=== PATIENT | female | born 1990 | race Caucasian/White ===

== ENCOUNTER → 2017-12-24 | Outpatient (CLI) | payer BC ==
[~2017-12-24] MED LIST: PRENTAB26 PO
[2017-12-24 12:12] LABS: BASO % 0.4 %; BASO ABS # 0.02 K/uL (0-0.2); EOS ABS # 0.05 K/uL (0-0.5); HEMATOCRIT 39.3 % (37-47); HEMOGLOBIN 13.1 g/dL (12.0-16.0); IG# 0.01 K/uL (0.00-0.02); LYMPH ABS # 1.36 K/uL (1.2-3.4); MEAN CELL VOLUME 86.2 fL (80-100); MEAN CORPUSCULAR HEMOGLOBIN 28.7 pg (25-34); MEAN CORPUSCULAR HGB CONC 33.3 g/dl (32-36); MEAN PLATELET VOLUME 10.6 fL (7.4-10.4); MONO % 5.6 %; MONO ABS # 0.27 K/uL (0.11-0.59); NEUT % 64.8 %; NEUT ABS # 3.15 K/uL (1.4-6.5); PLATELET COUNT 228 K/uL (130-400); RED CELL DISTRIBUTION WIDTH CV 13.3 % (11.5-14.5); RED CELL DISTRIBUTION WIDTH SD 41.9 fL (36.4-46.3); WHITE BLOOD COUNT 4.86 K/uL (4.8-10.8)
[2017-12-24 16:46] LABS: ALBUMIN 4.3 gm/dl (3.4-5.0); ALT/SGPT 20 U/L (12-78); AST/SGOT 13 U/L (15-37); BLOOD UREA NITROGEN 9 mg/dl (7-18); CALCIUM 8.8 mg/dl (8.5-10.1); CARBON DIOXIDE 26 mmol/L (21-32); CHOLESTEROL 172 mg/dl (0-200); CREATININE 0.78 mg/dl (0.60-1.20); GLUCOSE 80 mg/dl (70-99); POTASSIUM 3.8 mmol/L (3.5-5.1); SODIUM 139 mmol/L (136-145)
[2017-12-24 16:57] LABS: ALKALINE PHOSPHATASE 58 U/L (45-117); LDL CHOLESTEROL CALCULATED 91 mg/dl
== END | disposition home or self-care (01) ==
LOC: C.LABBFT 11:14
PROVIDERS: ATTEND Internal Medicine
DX: Z13.6 Encounter for screening for cardiovascular disorders (principal); R10.9 Unspecified abdominal pain

== ENCOUNTER → 2018-01-01 | Outpatient (CLI) | payer BC ==
--- NOTE | 2018-01-01 12:16 | DIAGNOSTIC IMAGING REPORT ---
ABDOMEN COMPLETE (US) HISTORY: Pain ABDOMINAL PAIN OF MULTIPL SITES. COMPARISON: None. FINDINGS: Pancreas: The pancreas demonstrates a normal echotexture. Liver: Unremarkable. Gallbladder: No gallbladder wall thickening. No gallstones. CBD: 2 mm Kidneys: No hydronephrosis. Spleen: Normal in size. Aorta: Normal in caliber. IVC: Patent. IMPRESSION: No significant abnormality identified within the within the abdomen. The above report was generated using voice recognition software. It may contain grammatical, syntax or spelling errors. Electronically signed by: Hector Tejeda M.D. 01/01/2018 12:14 PM Dictated Date/Time: 01/01/2018 12:12 PM
--- NOTE | 2018-01-01 12:16 | DIAGNOSTIC IMAGING REPORT ---
EXAMINATION: PELVIC ULTRASOUND (transabdominal and endovaginal scanning) CLINICAL HISTORY: Pelvic pain COMPARISON STUDY: FINDINGS: The uterus measured 9.6 x 4.3 x 6.0 cm. The endometrial stripe measured 5 mm. The right ovary measured 27 x 29 x 28 mm. There is an 18 mm right ovarian follicle. The left ovary measured 16 x 17 x 32 mm. There is no ultrasonographic evidence of ovarian torsion. It should be noted that ovarian torsion can be present with normal Doppler ultrasonographic findings. There is trace free fluid likely physiologic. IMPRESSION: Normal pelvic ultrasound. Electronically signed by: David Mcdowell M.D. 01/01/2018 12:15 PM Dictated Date/Time: 01/01/2018 12:14 PM
== END | disposition home or self-care (01) ==
LOC: C.ULTR 10:09
PROVIDERS: ATTEND Internal Medicine
DX: R10.9 Unspecified abdominal pain (principal)

== ENCOUNTER → 2018-03-25 | Day surgery (SDC) | payer BC ==
[2018-03-23 14:00] VITALS: Ht 165.1 cm; Wt 63.6 kg
[~2018-03-25] VITALS: Ht 165.1 cm; Wt 63.6 kg
[~2018-03-25] MED LIST changes: +DICY10CA12 PO; +LIDOCAINE HCL 2% 2 ML VIAL (20MG/ML) ONE; -PRENTAB26 PO; +PROPOFOL IV EMULSION 10 MG/ML 20 ML VIAL ONE; +SODIUM CHLORIDE 0.9% 500ML 500 ML IV ONE
--- NOTE | 2018-03-25 15:22 | Endo History and Physical ---
History & Physical Date of Service: Mar 25, 2018. Chief Complaint: Abdominal Pain Referring Physician: Dr. Nichols History of Present Illness 27 yo CF who presents for colonoscopy secondary to abdominal pain. Past Surgical History Hx Cardiac Surgery: No Hx Internal Defibrillator: No Hx Pacemaker: No Hx Abdominal Surgery: No Hx of Implantable Prosthesis: No Hx Post-Op Nausea and Vomiting: No Hx Cancer Surgery: No Hx Thoracic Surgery: No Hx Orthopedic: No Hx Urinary Tract Surgery: No Social History Smoking Status: Never Smoker Hx Substance Use: No Hx Alcohol Use: Yes (RARELY) Allergies Coded Allergies: No Known Allergies (Unverified , 03/25/18) Current Medications Reported Home Medications Medications Dose Route/Sig Max Daily Dose Days Date Category Dicyclomine Hcl 10 Mg Cap 1 Cap PO Q6H PRN 25 03/23/18 Reported Vital Signs Weight (Kilograms): 63.64 Height (Feet): 5 Height (Inches): 5 Date Time Temp Pulse Resp B/P (MAP) Pulse Ox O2 Delivery O2 Flow Rate FiO2 03/25/18 15:16 37.2 75 18 122/74 (90) 97 Room Air Physical Exam General Appearance: WD/WN, no apparent distress Respiratory/Chest: Auscultation: breath sounds normal Cardiovascular: Heart Auscultation: RRR Abdomen: Bowel Sounds: normal Inspection & Palpation: soft, non-distended, no tenderness, guarding & rebound Assessment and Plan Assessment: 27 yo CF who presents for colonoscopy secondary to abdominal pain. Plan: Proceed with colonoscopy.
--- NOTE | 2018-03-25 16:14 | Discharge Instructions ---
Endoscopy Patient Instructions Date / Procedure(s) Performed Mar 25, 2018. Colonoscopy Allergy Information Coded Allergies: No Known Allergies (Unverified , 03/25/18) Discharge Date / Findings Mar 25, 2018. Internal hemorrhoids Medication Instructions OK to resume all medications today as prescribed Reported Home Medications Medications Dose Route/Sig Max Daily Dose Days Date Category Dicyclomine Hcl 10 Mg Cap 1 Cap PO Q6H PRN 25 03/23/18 Reported Provider Instructions Activity Restrictions - No exercising or heavy lifting for 24 hours. - Do not drink alcohol the day of the procedure. - Do not drive a car or operate machinery until the day after the procedure. - Do not make any important decisions or sign important papers in 24 hours after the procedure. Following Day: - Return to full activity which may include returning to work/school. Diet Start your diet with liquids and light foods (jello, soup, juice, toast). Then eat your usual diet if not nauseated. Treatment For Common After Affects For mild abdominal pain, bloating, or excessive gas: - Rest - Eat lightly - Lie on right side Follow-Up Information Follow-up with Dr. Nichols as scheduled Anesthesia Information What You Should Know You have had a procedure that required some medicine to reduce anxiety and discomfort. This treatment is called moderate sedation. After receiving the treatment, you may be sleepy, but you will be able to breathe on your own. The effects of the treatment may last for several hours. Follow these instructions along with Activity/Diet recommendations noted above: * Do NOT do anything where dizziness or clumsiness would be dangerous. * Rest quietly at home today, then you can be up and about tomorrow. * Have a responsible person stay with you the rest of today. * You may have had an I.V. today. If so, you may take the dressing off later today. Recommendations Call your doctor if: * Trouble breathing * Continuous vomiting for more than 24 hours * Temperature above 101 degrees * Severe abdominal pain or bloating * Pain not relieved by pain medicine ordered * There is increased drainage or redness from any incision * A large amount of rectal bleeding greater than 2-3 tablespoons. (If you had a polyp/s removed or have hemorrhoids, a small amount of blood - from the rectum is to be expected.) * You have any unanswered questions or concerns. IN THE EVENT OF A SERIOUS EMERGENCY, GO TO THE NEAREST EMERGENCY ROOM Your discharge instructions were prepared by provider Branden Peters. Patient Instructions Signature Page Radha Nunez Patient (or Guardian) Signature/Date: I have read and understand the instructions given to me by my caregivers. Caregiver/RN/Doctor Signature/Date: The above-named patient and/or guardian has received patient instructions on this date. + Original Patient Signature Page (only) stays with chart. Please make copy for patient.
--- NOTE | 2018-03-25 16:28 | GI REPORT ---
Patient Name: Radha Nunez Procedure Date: 03/25/2018 3:51 PM Date of : 1990 Admit Type: Outpatient Age: 27 Gender: Female Attending MD: Branden Peters DO Procedure: Colonoscopy Providers: Branden Peters DO Referring MD: Jesi Duran Indications: Generalized abdominal pain Medicines: Monitored Anesthesia Care Complications: No immediate complications. Estimated Blood Loss: Estimated blood loss: none. Procedure: Pre-Anesthesia Assessment: - Prior to the procedure, a History and Physical was performed, and patient medications and allergies were reviewed. The patient's tolerance of previous anesthesia was also reviewed. The risks and benefits of the procedure and the sedation options and risks were discussed with the patient. All questions were answered, and informed consent was obtained. Prior Anticoagulants: The patient has taken no previous anticoagulant or antiplatelet agents. ASA Grade Assessment: I - A normal, healthy patient. After reviewing the risks and benefits, the patient was deemed in satisfactory condition to undergo the procedure. After I obtained informed consent, the scope was passed under direct vision. Throughout the procedure, the patient's blood pressure, pulse, and oxygen saturations were monitored continuously. The Scope was introduced through the anus and advanced to the terminal ileum. The colonoscopy was performed without difficulty. The patient tolerated the procedure well. The quality of the bowel preparation was good. The terminal ileum, ileocecal valve, appendiceal orifice, and rectum were photographed. Findings: The perianal and digital rectal examinations were normal. Non-bleeding internal hemorrhoids were found during retroflexion. The hemorrhoids were small. Impression: - Non-bleeding internal hemorrhoids. - No specimens collected. Recommendation: - Resume previous diet. - Continue present medications. - Repeat colonoscopy at age 49 for surveillance. - Return to primary care physician as previously scheduled. Branden Peters DO 03/25/2018 4:28:13 PM This report has been signed electronically. Note Initiated On: 03/25/2018 3:51 PM Number of Addenda: 0 I attest to the content of the Intraoperative Record and orders documented therein, exceptions below {[id number]}
[2018-03-25 16:49] VITALS: BP 108/76; PULSE 64; O2SAT 100
--- NOTE | 2018-03-25 16:49 | Anesthesiology Progress Note ---
Anesthesia Post Op Note Date & Time Mar 25, 2018 at 16:49 Vital Signs Pain Intensity: 0 Vital Signs Past 12 Hours Date Time Temp Pulse Resp B/P (MAP) Pulse Ox O2 Delivery O2 Flow Rate FiO2 03/25/18 16:34 82 16 106/77 (87) 100 Room Air 03/25/18 16:19 36.7 100 16 101/78 (86) 97 Room Air 03/25/18 15:16 37.2 75 18 122/74 (90) 97 Room Air Notes Mental Status: alert / awake / arousable, participated in evaluation Pt Amnestic to Procedure: Yes Nausea / Vomiting: adequately controlled Pain: adequately controlled Airway Patency, RR, SpO2: stable & adequate BP & HR: stable & adequate Hydration State: stable & adequate Anesthetic Complications: no major complications apparent
== END | disposition home or self-care (01) ==
LOC: C.GI 14:34
PROVIDERS: ATTEND Internal Medicine
DX: R10.84 Generalized abdominal pain (principal); K64.8 Other hemorrhoids

== ENCOUNTER 2018-12-06 07:48 | Inpatient (IN) ==
[2018-12-06] MEDS ORDERED: OXYTOCIN 30 UNITS/500 ML BAG IV PRN ×2 (08:07→12:45)
[2018-12-06] MEDS ORDERED: LACTATED RINGER'S 1,000 ML IV PRN ×2 (08:07→09:46)
[2018-12-06] MEDS ORDERED: LACTATED RINGER'S 1,000 ML IV SCH (08:15)
[2018-12-06 08:28] LABS: Hematocrit (blood only) 30.5 % (37-47); Hemoglobin 9.6 g/dL (12.0-16.0); Mean Corpuscular Volume 85.4 fL (80-100); Mean Platelet Volume 10.6 fL (7.4-10.4); Platelet Count 209 K/uL (130-400); RDW Coefficient of Variation 15.2 % (11.5-14.5); Red Blood Count 3.57 M/uL (4.2-5.4); White Blood Count 9.98 K/uL (4.8-10.8)
[2018-12-06 08:35] LABS: Mean Corpuscular Hgb Conc 31.5 g/dL (32-36)
[2018-12-06] MEDS ORDERED: BUPIVACAINE 0.25% 30 ML VIAL ONE (08:55)
[2018-12-06] MEDS ORDERED: ePHEDrine sulfate 50 MG/ML AMP ONE (08:56)
[2018-12-06] MEDS ORDERED: fentaNYL 2MCG/ML ROPIV 1.25MG/ML 100 ML BAG EPI ONE (08:57)
[2018-12-06] MEDS ORDERED: fentaNYL citrate 100 MCG/2 ML VIAL ONE (08:57)
--- NOTE | 2018-12-06 09:30 | Anesthesiology Consultation ---
Date of Service December 06, 2018 Assessment & Plan Chart Review Chart Review: Patient NOT seen in Pre Admission Testing and Acceptable Risk for Labor Epidural Consults Requested none ASA ASA2 Proposed Anesthesia Anesthesia Type: Labor Epidural and CSE Risk / Benefits Reviewed With: PT / POA / Parent / Guardian, Accepts Plan and Informed Consent Obtained NPO Date Last Intake of Fluids: 12/06/18 Time Last Intake of Fluids: 09:00 Date Last Intake of Solids: 12/05/18 Time Last Intake of Solids: 17:00 History Height/Weight Height: 5 ft 5 in Weight: 74.843 kg Allergies Allergy/AdvReac Type Severity Reaction Status Date / Time No Known Allergies Allergy Verified 12/06/18 08:04 Medications Home Medications Medication Instructions Recorded Confirmed Last Taken PNV cmb#95-ferrous fumarate-FA 1 tab PO DAILY 12/06/18 12/06/18 12/06/18 06:00 [] Active Medications Generic Name Dose Route Start Last Admin Trade Name Freq PRN Reason Stop Dose Admin Lactated Ringer's 1,000 mls @ 125 mls/hr 12/06/18 08:15 12/06/18 09:05 Lr IV 12/08/18 08:14 125 mls/hr .Q8H WILLIAM Administration Lactated Ringer's 1,000 mls @ 999 mls/hr 12/06/18 08:07 12/06/18 09:06 Lr IV 01/05/19 08:06 Infused .Q1H1M PRN Infusion (Pre-Anesthesia) Past Family History Family History Other Diabetes mellitus, type 2 Past Surgical History Surgical History History of colonoscopy Past Anesthesia History No Hx of Anesthesia Complications and No Family Hx of Anesthesia Complications History of PONV No Motion Sickness Screening History of Motion Sickness: No Social History Smoking Status: Never smoker Do You Dip or Chew Tobacco: No Hx Alcohol Use: No Hx Substance Use: No Exercise / Class Metabolic Activity II 4-5 Yardwork/Stairs/Walk up hill Review of Systems no chest pain or sob Physical Exam Vital Signs Last Vital Signs Temp 36.7 C 12/06/18 08:17 Pulse 85 12/06/18 08:21 Resp 18 12/06/18 08:17 BP 118/66 12/06/18 08:21 SpO2 100 ENMT Mouth: no TMJ abnormality Thyromental Distance: > or= 3.5 Finger Breadths Mallampati Class: II Neck normal visual inspection Respiratory normal respiratory effort Auscultation: lungs clear to auscultation bilaterally Cardiovascular Rate/Rhythm: regular rate and regular rhythm Musculoskeletal Spine: normal cervical ROM Neurologic moves all extremities Psychiatric Orientation: alert and oriented x 3 Testing Laboratory Results 12/06/18 08:16
[2018-12-06] MEDS ORDERED: ONDANSETRON INJ 2 MG/ML 2 ML VIAL IV PRN (09:46)
[2018-12-06] MEDS ORDERED: ePHEDrine sulfate 50 MG/ML AMP IV PRN (09:46)
[2018-12-06] MEDS ORDERED: NALBUPHINE HCL INJ 10 MG/ML AMP IV PRN (09:46)
[2018-12-06] MEDS ORDERED: NALOXONE HCL 1 MG in SODIUM CHLORIDE 0.9% 1000ML 1,000 ML IV PRN (09:46)
[2018-12-06] MEDS ORDERED: DiphenhydrAMINE HCL 50 MG/ML VIAL IV PRN (09:46)
[2018-12-06] MEDS ORDERED: NALOXONE HCL 0.4 MG/1 ML VIAL/CARP IV PRN (09:46)
[2018-12-06] MEDS ORDERED: fentaNYL 2MCG/ML ROPIV 1.25MG/ML 100 ML BAG EPI PRN (09:46)
--- NOTE | 2018-12-06 10:32 | History & Physical Report ---
Date of Service December 06, 2018 Assessment & Plan (1) 39 weeks gestation of : 28yo @ 39 6/7 in spontaneous labor Admit to L&D, EFM/toco, IVF/labs. OK for epidural when she desires. Anticipate . History of Present Illness Chief Complaint: contractions Primary Care Provider: Compa Nichols MD 28yo @ 39 6/7 presents with regular ctx. No leaking of fluid, no vaginal bleeding. + movement. complicated by Hepatitis C, had followup labs that were negative - Infectious Disease in [place] stated that she required no further workup. Patient's brother had h/o VSD, but echo was normal. 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
--- NOTE | 2018-12-06 12:30 | Procedure Note ---
Vaginal Delivery Summary Date of Service December 06, 2018 Vaginal Delivery Summary Predelivery diagnoses: 28yo @ 39 6/7, Hepatitis C (with negative labs) Postdelivery diagnoses: same, 1st degree perineal laceration Procedure: spontaneous vaginal delivery, repair of 1st degree laceration Surgeon: Dr Morin EBL: 300ml Complications: none Findings: Viable male , APGARS 8/8, Weight pending please see nursery records. Description of delivery: The patient had presented in labor, received epidural,she progressed to 9 cm, at this time artificial rupture membranes was performed for large amount of clear fluid. She then quickly present progressed to complete dilation. She began to push. She spontaneously vaginally delivered a viable male from the cephalic presentation. The head delivered in the right occiput anterior position, followed by the anterior and the posterior shoulder, followed by the body. The baby was placed on mother's abdomen, spontaneous cry was heard. Delayed cord clamping was employed, after 1 minute the cord was doubly clamped and cut. Cord blood was obtained. The placenta delivered spontaneously intact with a three-vessel cord. The uterus and vagina were swabbed of all clot and debris. The Pitocin was given, the uterus became firm. The cervix, vagina, perineum were inspected and a superficial first-degree perineal laceration was noted, patient requested repair. This was repaired in standard fashion with 3-0 Vicryl in a running stitch. Excellent hemostasis was observed. Mother and baby tolerated the delivery well, and are recovering in the room in stable and good condition. At the conclusion of the delivery, s ponge, instrument, needle counts were correct x2.
[2018-12-06] MEDS ORDERED: ACETAMINOPHEN 325 MG TAB PO PRN (12:45)
[2018-12-06] MEDS ORDERED: BISACODYL 10 MG SUPP PR PRN (12:45)
[2018-12-06] MEDS ORDERED: HYDROCORTISONE ACETATE 25 MG SUPP PR PRN (12:45)
[2018-12-06] MEDS ORDERED: SUPERCREAM 0.870% 15 GM JAR EXT PRN (12:45)
[2018-12-06] MEDS ORDERED: BENZOCAINE 20% AER SPR 82.5 GM CAN EXT PRN (12:45)
[2018-12-06] MEDS ORDERED: OXYCODONE/ACETAMINOPHEN 5mg/325mg TAB PO PRN (12:45)
[2018-12-06] MEDS ORDERED: DIPHTHERIA/TETANUS/PERTUSSIS 0.5 ML SYR/VIAL IM ONE (12:45)
[2018-12-06] MEDS: IBUPROFEN 600 MG TAB PO PRN ×2 (14:24→23:11)
--- NOTE | 2018-12-06 15:24 | Anesthesia Procedure Note ---
Date of Service December 06, 2018 Anesthesia Post Epidural Note Vital Signs Vital Signs: Temp Pulse Resp BP Pulse Ox 36.7 C 112 H 18 144/70 H 96 12/06/18 08:17 12/06/18 15:18 12/06/18 10:30 12/06/18 15:18 12/06/18 12:23 Pain Intensity Lower Abdomen: Pain Intensity: 0 Notes Mental Status: alert / awake / arousable and participated in evaluation Nausea / Vomiting: adequately controlled Pain: adequately controlled Airway Patency, RR, SpO2: stable & adequate BP & HR: stable & adequate Hydration State: stable & adequate Neuraxial Anesthesia: was administered and sensory block is resolving Anesthetic Complications: no major complications apparent and Pt Satisfied with anesthetic care Epidural: Removed without complications and With tip intact
[2018-12-06] MEDS: DOCUSATE SODIUM 100 MG CAP PO SCH (20:33)
[2018-12-07 06:42] LABS: Hemoglobin 8.8 g/dL (12.0-16.0)
--- NOTE | 2018-12-07 08:53 | Obstetrical Progress Note ---
Date of Service December 07, 2018 Assessment & Plan (1) 39 weeks gestation of : PPD#1 doing well. Would like discharge. Instructions reviewed. Subjective Ambulation: ambulating normally Passing Gas:: Yes Diet Tolerance:: regular diet Lochia:: Moderate Feeding Type:: breast feeding Physical Exam Vital Signs (Past 24 Hours) Last Vital Signs Temp 36.7 C 12/07/18 03:30 Pulse 79 12/07/18 03:30 Resp 18 12/07/18 03:30 BP 110/54 L 12/07/18 03:30 Pulse Ox 97 12/07/18 03:30 Gen AAO x3 NAD CV [id number] L CTAB Abd soft NTTP fundus firm Ext no edema
[2018-12-07] MEDS ORDERED: PRENATAL VITAMIN 1 TAB PO SCH (09:00)
[2018-12-07] MEDS: DOCUSATE SODIUM 100 MG CAP PO SCH (09:14)
[2018-12-07] MEDS ORDERED: BISACODYL 5 MG TABEC PO SCH (20:00)
== END 2018-12-07 14:30 | disposition home or self-care (01) | DRG 807 ==
LOC: OPB 07:48 → 4S1 07:53 → 4S2 17:08

== ENCOUNTER 2020-04-07 23:16 | Inpatient (IN) ==
[2020-04-07] MEDS ORDERED: ePHEDrine sulfate 50 MG/ML AMP ONE (23:57)
[2020-04-07] MEDS ORDERED: BUPIVACAINE 0.25% 30 ML VIAL ONE (23:57)
[2020-04-07] MEDS: LACTATED RINGER'S 1,000 ML IV PRN (23:57)
[2020-04-07] MEDS ORDERED: fentaNYL 2MCG/ML ROPIV 1.25MG/ML 100 ML BAG EPI ONE (23:58)
[2020-04-07] MEDS ORDERED: fentaNYL citrate 100 MCG/2 ML VIAL ONE (23:58)
[2020-04-08 00:04] LABS: Hematocrit (blood only) 31.6 % (37-47); Mean Corpuscular Hemoglobin 26.1 pg (25-34); Mean Corpuscular Volume 82.5 fL (80-100); Mean Platelet Volume 10.1 fL (7.4-10.4); Platelet Count 202 K/uL (130-400); RDW Coefficient of Variation 16.7 % (11.5-14.5); RDW Standard Deviation 50.8 fL (36.4-46.3); Red Blood Count 3.83 M/uL (4.2-5.4); White Blood Count 10.27 K/uL (4.8-10.8)
[2020-04-08 00:06] LABS: Mean Corpuscular Hgb Conc 31.6 g/dL (32-36)
[2020-04-08] MEDS ORDERED: ONDANSETRON INJ 2 MG/ML 2 ML VIAL IV PRN (00:09)
[2020-04-08] MEDS ORDERED: DiphenhydrAMINE HCL 50 MG/ML VIAL IV PRN (00:09)
[2020-04-08] MEDS ORDERED: fentaNYL 2MCG/ML ROPIV 1.25MG/ML 100 ML BAG EPI PRN (00:09)
[2020-04-08] MEDS ORDERED: ePHEDrine sulfate 50 MG/ML AMP IV PRN (00:09)
[2020-04-08] MEDS ORDERED: NALOXONE HCL 0.4 MG/1 ML VIAL/CARP IV PRN (00:09)
[2020-04-08] MEDS ORDERED: NALOXONE HCL 1 MG in SODIUM CHLORIDE 0.9% 1000ML 1,000 ML IV PRN (00:09)
--- NOTE | 2020-04-08 00:12 | Anesthesiology Consultation ---
Date of Service April 08, 2020 Covid 19 negative on 04/04/20. Assessment & Plan Chart Review Chart Review: Patient NOT seen in Pre Admission Testing and Acceptable Risk for Labor Epidural Consults Requested none ASA ASA2 Proposed Anesthesia Anesthesia Type: Labor Epidural and CSE Risk / Benefits Reviewed With: PT / POA / Parent / Guardian, Accepts Plan and Informed Consent Obtained History Height/Weight Height: 5 ft 5 in Weight: 75.296 kg Allergies Allergy/AdvReac Type Severity Reaction Status Date / Time No Known Allergies Allergy Verified 04/07/20 23:31 Medications Home Medications Medication Instructions Recorded Confirmed Last Taken prenat.vits,werner,jlx-vhia-qulfs 1 tab PO DAILY 09/02/19 04/04/20 Unknown ferrous sulfate 325 tab PO DAILY 03/28/20 04/04/20 Unknown Active Medications Generic Name Dose Route Start Last Admin Trade Name Freq PRN Reason Stop Dose Admin Lactated Ringer's 1,000 mls @ 125 mls/hr 04/07/20 23:36 04/07/20 23:57 Lr IV 04/09/20 23:35 999 mls/hr .Q8H PRN Administration L&D Protocol Protocol NPO Date Last Intake of Fluids: 04/07/20 Time Last Intake of Fluids: 19:00 Date Last Intake of Solids: 04/07/20 Time Last Intake of Solids: 23:00 Past Medical History Medical History 39 weeks gestation of Heart murmur Varicella vaccination Exercise / Class Metabolic Activity II 4-5 Yardwork/Stairs/Walk up hill Past Family History Family History Brother VSD (ventricular septal defect) Mother Cervical cancer Other Diabetes mellitus, type 2 Past Surgical History Surgical History History of colonoscopy S/P eye surgery Past Anesthesia History No Hx of Anesthesia Complications and No Family Hx of Anesthesia Complications History of PONV No Hx of PONV and No Hx of Motion Sickness Social History Smoking Status: Never smoker Hx Alcohol Use: No Hx Substance Use: No Review of Systems no chest pain or sob Physical Exam Vital Signs Last Vital Signs Temp 36.7 C 04/07/20 23:39 Pulse 84 04/08/20 00:08 Resp 20 08/15/20 23:39 BP 117/69 04/07/20 23:30 Pulse Ox 99 04/08/20 00:08 ENMT Mouth: no TMJ abnormality Thyromental Distance: > or= 3.5 Finger Breadths Mallampati Class: II Neck normal visual inspection Respiratory normal respiratory effort Auscultation: lungs clear to auscultation bilaterally Cardiovascular Rate/Rhythm: regular rate and regular rhythm Musculoskeletal Spine: normal cervical ROM Neurologic moves all extremities Psychiatric Orientation: alert and oriented x 3 Testing Laboratory Results 04/07/20 23:55
--- NOTE | 2020-04-08 00:56 | Labor Progress Brief Note ---
Date of Service April 08, 2020 Subjective at 40w1d arrived from home with contractions becoming more frequent and painful. No LOF, no VB, Good FM. Assessment & Plan (1) Normal labor and delivery: Patient arrived in active labor, has a history of rapid labors and is a multip. Allow rest at this time for epidural to take effect. Can re-assess once comfortable, and anticipate . Admission and Anticipated Discharge Date Admission Date: April 07, 2020 Physical Exam Physical Exam: Per RN Schroeder cervix 7cm / bulging membranes. FHT Cat 1 Patient was admitted on the nurse's exam as I was delivering another patient at this time. IV placed. Epidural requested. When I arrived in this patient's room she was mid-epidural procedure. I supported her during the epidural so NOLBERTO Sanches could complete her other admission tasks. The patient tolerated her epidural procedure well but needed more time to become comfortable so her cervix was not immediately rechecked. Results & Data ([facility]) Vital Signs (Past 12 Hours) Vital Signs Temp Pulse Resp BP Pulse Ox 04/08/20 00:51 73 103/55 L 04/08/20 00:48 76 99 04/08/20 00:43 68 99 04/08/20 00:38 82 99 04/08/20 00:36 75 109/56 L 04/08/20 00:34 84 110/60 04/08/20 00:33 76 98 04/08/20 00:32 78 107/56 L 04/08/20 00:30 84 110/61 04/08/20 00:28 80 106/59 L 98 04/08/20 00:26 81 105/57 L 04/08/20 00:24 90 133/73 04/08/20 00:23 88 100 04/08/20 00:18 87 99 04/08/20 00:14 85 89 L 04/08/20 00:13 86 94 04/08/20 00:08 84 99 04/08/20 00:04 89 87 L 04/08/20 00:03 101 H 96 04/07/20 23:39 98.1 F 20 04/07/20 23:30 98.1 F 83 20 117/69 Coding Level of Care Code None Diagnoses Normal labor and delivery O80
[2020-04-08] MEDS: LACTATED RINGER'S 1,000 ML IV PRN (01:03)
[2020-04-08] MEDS: OXYTOCIN 30 UNITS/500 ML BAG IV PRN ×2 (01:55→02:27)
--- NOTE | 2020-04-08 02:04 | Delivery Summary ---
Vaginal Delivery Summary Date of Service April 08, 2020 Vaginal Delivery Summary DIAGNOSES: 1. Rao intrauterine at 40w1d gestation. 2. Spontaneous onset of labor. 3. Group B Streptococcus Neg. PROCEDURE: Spontaneous vaginal delivery without laceration. SURGEON: Malia Sher MD. CONSOLE MANAGER: None. ESTIMATED BLOOD LOSS: 350 mL. COMPLICATIONS: None. PLACENTA: Spontaneous and intact with a 3-vessel cord. DISPOSITION: Stable to labor and delivery. DESCRIPTION: The patient pushed well and brought the head to in OA position. The 's head was allowed to deliver with contraction force and no further active pushing, with the perineum protected during this time. The shoulders delivered easily with a maternal pushing effort. There was no nuchal cord. The right shoulder was anterior and the left arm was compound presentation with elbow flexed and hand alongside cheek. The shoulders and body delivered without any difficulty, and the infant was placed on the maternal abdomen. It was vigorous and moving all extremities, and making respiratory efforts. The cord was doubly clamped by the MD and then cut. The placenta delivered spontaneously and was noted to be intact and with a 3VC. The cervix, vagina and perineum were examined and were found to be without defect requiring repair. The fundus was firm and lochia minimal immediately after delivery.
[2020-04-08] MEDS ORDERED: ACETAMINOPHEN 325 MG TAB PO PRN (02:09)
[2020-04-08] MEDS ORDERED: HYDROCORTISONE ACETATE 25 MG SUPP PR PRN (02:09)
[2020-04-08] MEDS ORDERED: SUPERCREAM 0.870% 15 GM JAR EXT PRN (02:09)
[2020-04-08] MEDS ORDERED: OXYCODONE/ACETAMINOPHEN 5mg/325mg TAB PO PRN (02:09)
[2020-04-08] MEDS ORDERED: DIPHTHERIA/TETANUS/PERTUSSIS 0.5 ML SYR/VIAL IM ONE (02:09)
[2020-04-08] MEDS ORDERED: BENZOCAINE 20% AER SPR 82.5 GM CAN EXT PRN (02:09)
[2020-04-08] MEDS: IBUPROFEN 600 MG TAB PO PRN ×4 (02:20→23:45)
[2020-04-08] MEDS: DOCUSATE SODIUM 100 MG CAP PO SCH ×2 (07:59→20:11)
[2020-04-08] MEDS: PRENATAL VITAMIN 1 TAB PO SCH (08:00)
--- NOTE | 2020-04-08 08:58 | Anesthesia Procedure Note ---
Date of Service April 08, 2020 Anesthesia Post Epidural Note Vital Signs Vital Signs: Temp Pulse Resp BP Pulse Ox 36.9 C 79 18 109/64 98 04/08/20 07:21 04/08/20 07:21 04/08/20 07:21 04/08/20 07:21 04/08/20 07:21 Pain Intensity Bilateral Generalized: Pain Intensity: 4 Notes Mental Status: alert / awake / arousable and participated in evaluation Patient Amnestic to Procedure: No Nausea / Vomiting: adequately controlled Pain: adequately controlled Airway Patency, RR, SpO2: stable & adequate BP & HR: stable & adequate Hydration State: stable & adequate Neuraxial Anesthesia: was administered and sensory block resolved Anesthetic Complications: no major complications apparent and Pt Satisfied with anesthetic care Epidural: Removed without complications and With tip intact
[2020-04-08 23:56] VITALS: O2SAT 97
--- NOTE | 2020-04-09 06:17 | Obstetrical Progress Note ---
Date of Service <Radha OchoaShima Mcdonnell DO - Last Filed: 04/09/20 07:37> April 09, 2020 Assessment & Plan <Radha OchoaShima NievesjeremiahDO oscar - Last Filed: 04/09/20 07:37> (1) Normal course: - Feels well today. Eating well, voiding well, ambulating well. - H/H 9.1/29.5 this morning. Advised pt to continue supplemental iron OTC. - Pain well controlled with ibuprofen 600mg Q4H PRN - Routine vaginal delivery care -- OOB, ambulation, diet progression as tolerated - After discharge will have 6 week follow-up with Dr. Sher. - Plan for d/c home today. Subjective <Radha OchoaShima Mcdonnell DO - Last Filed: 04/09/20 07:37> Radah Nunez is a 29 y/o female who is PPD #1 following with epidural at 40 1/7 weeks. She reports feeling well overall this morning. Minimal abdominal cramping and 0-2/10 pain well managed on analgesics. Voiding with some external burning sensation that is controlled with Dermoplast spray. Tolerating meals overnight without difficulty. Patient has been able to ambulate some. + passing gas but no bowel movement. Has persistent lochia with much improvement this morning. Currently . Pt does endorse some intermittent nausea but she denies any vomiting. Review of Systems Denies fever or chills. Denies shortness of breath or cough. Denies chest pain. Denies breast pain. + nausea. Denies emesis. Denies dysuria. Denies leg pain or leg swelling. Denies headache or changes in vision. Physical Exam <Radha Harvey Mcdonnell DO - Last Filed: 04/09/20 07:37> General: Alert, oriented. No acute distress. Cardiac: Regular rate and rhythm. No murmurs. Respiratory: Clear to auscultation bilaterally a/p, no wheezes/rales/rhonchi. No increased work of breathing. Symmetrical chest rise. No respiratory distress. Abdomen: Soft, nontender, nondistended. Bowel sounds present. Uterus: Uterine fundus firm, palpable 1 cm above umbilicus on left side. Lower Extremities: No lower extremity edema or swelling. No deep calf pain. Татьяна's negative bilaterally. Results & Data ([facility]) <Radha Mcdonnell DO - Last Filed: 04/09/20 07:37> Vital Signs (Past 12 Hours) Vital Signs Temp Pulse Resp BP Pulse Ox 04/08/20 23:40 36.6 C 80 16 115/63 97 04/08/20 20:05 36.5 C 80 16 117/65 98 Laboratory Results H/H 9.1/29.5 at 0630 this morning <Malia Sher MD - Last Filed: 04/09/20 07:54> Co-Signing Physician Notes I have reviewed the resident's note and examined the patient myself, and agree with the note above. Patient ready for D/C home, given instructions by this MD, all questions answered.
[2020-04-09 06:53] LABS: Hematocrit (blood only) 29.5 % (37-47); Hemoglobin 9.1 g/dL (12.0-16.0); Mean Corpuscular Hemoglobin 25.8 pg (25-34); Mean Corpuscular Hgb Conc 30.8 g/dL (32-36); Mean Corpuscular Volume 83.6 fL (80-100); Platelet Count 208 K/uL (130-400); RDW Coefficient of Variation 16.8 % (11.5-14.5); RDW Standard Deviation 51.3 fL (36.4-46.3); Red Blood Count 3.53 M/uL (4.2-5.4); White Blood Count 9.22 K/uL (4.8-10.8)
[2020-04-09 08:01] VITALS: BP 126/76; PULSE 86; TEMP 98.1
[2020-04-09] MEDS: PRENATAL VITAMIN 1 TAB PO SCH (08:25)
[2020-04-09] MEDS: IBUPROFEN 600 MG TAB PO PRN (08:25)
[2020-04-09] MEDS: DOCUSATE SODIUM 100 MG CAP PO SCH (08:25)
== END 2020-04-09 11:54 | disposition home or self-care (01) | DRG 807 ==
LOC: OPB 23:16 → 4S1 23:17 → 4S2 04-08 04:45